=== PATIENT | female | born 1980 | race Caucasian/White ===

== ENCOUNTER → 2023-05-14 | Outpatient (CLI) | payer BC, SELFPAY ==
--- NOTE | 2023-05-14 | DI.MG.S_ITS ---
BILATERAL DIGITAL SCREENING MAMMOGRAM 3D/2D WITH CAD: 05/14/2023 CLINICAL: Baseline exam. Routine screening. No prior exams were available for comparison. Both breasts are heterogeneously dense, which may obscure small masses (category c / 51-75% glandular tissue). Current study was also evaluated with a Computer Aided Detection (CAD) system. No significant masses, calcifications, or other findings are seen in either breast. IMPRESSION: NEGATIVE There is no mammographic evidence of malignancy. A 1 year screening mammogram is recommended. Based on the Tyrer Cuzick model (a risk assessment model) the patient's lifetime risk is 15.1% and her 10 year risk is 1.9%. According to the ACR, ACS, and NCCN guidelines, an annual breast MRI exam along with mammogram is recommended if the patient's lifetime risk is 20% or greater. This exam was interpreted at Station ID: [id number]. NOTE: For mammograms, a report in lay terms will be sent to the patient. Approximately 15% of breast malignancies will not be visualized mammographically. In the management of a palpable breast mass, a negative mammogram must not discourage biopsy of a clinically suspicious lesion. Electronically Signed By: Olvin styles/isrrael:05/14/2023 18:23:12 letter sent: Normal Exam ACR BI-RADS Category 1: Negative [id number]
--- NOTE | 2023-05-16 11:29 | DI.NM.S_ITS ---
DATE OF SERVICE: 05/14/2023 PROCEDURE: Exercise treadmill stress test without imaging. ORDERING PROVIDER: BRIANNA Alvarez. INDICATIONS: The patient is a 42-year-old female with unspecified chest discomfort. FINDINGS: 1. The patient was able to exercise for 11 minutes and 1 second on a standard Jules protocol suggesting very good exercise capacity with an ISSAC of -23%, achieving 12.8 METS. 2. She had a normal heart rate and blood pressure response to exercise, achieving a maximum heart rate of 188 BPM (104% of her predicted maximum). 3. She had no chest discomfort or other anginal symptoms. 4. Her resting ECG showed sinus rhythm with normal ST segments. There are no significant ST-segment shifts with exercise. She had rare isolated PVCs at peak exercise and in early recovery, but no complex ventricular ectopy. IMPRESSION: 1. Normal exercise treadmill stress test for ischemia. 2. Very good exercise capacity without angina. She had rare isolated PVCs at peak exercise and in early recovery but without complex ectopy. Mary Miranda - AARON/zaid/JARROD doc#: [id number]/job#: [id number] dd: 05/14/2023 16:42:00 dt: 05/15/2023 00:22:00 DICTATING MD/COPIES TO: Douglas Dumas MD; BRIANNA Alvarez COPIES MNE: GEO
== END ==
LOC: MAMMO 07:20
PROVIDERS: PCP Registered Nurse; Referring Provider Registered Nurse; Visit Provider Registered Nurse
DX: R07.9 Chest pain, unspecified (principal); Z12.31 Encounter for screening mammogram for malignant neoplasm of breast
CPT/HCPCS: 77063; 77067; 93017

== ENCOUNTER → 2023-06-26 06:45 | Outpatient (CLI) | payer BC, SELFPAY ==
--- NOTE | 2023-06-26 | DI.US.S_ITS ---
PROCEDURE: US PELVIC COMPLETE INDICATIONS: FERTILITY WORK-UP TECHNIQUE: Real-time scanning was performed of the pelvic organs, with image documentation. Additional endovaginal scanning was necessary due to incomplete visualization of the adnexal and endometrial structures by transabdominal scanning. COMPARISON: None. FINDINGS: Uterus: Uterus is anteverted and normal in size at 8.9 x 4.5 x 5.7 cm. The myometrium is homogeneous. The endometrium measures 6.3 mm combined thickness. The endometrium has a trilaminar appearance. There is a right-sided intramural fibroid which measures 3.0 x 2.5 x 2.4 cm, a right anterior intramural fibroid which measures 2.1 x 1.7 x 1.7 cm and a midline central intramural fibroid which measures 3.4 x 3.0 x 2.9 cm. Some calcifications are noted within the fibroids. Ovaries: The right ovary measures 2.1 x 3.1 x 2.1 cm, with a calculated ovarian volume of 7.4 cc. The left ovary measures 3.0 x 1.8 x 2.1 cm, with a calculated ovarian volume of 7.6 cc. The ovaries have a normal sonographic appearance. There are 13 follicles within the right ovary and 11 follicles within the left ovary. The dominant left ovarian follicle measures 1.3 x 0.9 x 1.0 cm. No adnexal masses are seen. Other: No pathologic free abdominal or pelvic fluid. IMPRESSION: 1. 13 right and 11 left ovarian follicles. 2. Fibroid uterus. We strive to produce accurate, complete, and clear reports of imaging services. To assist us in improving patient care, this report was composed using standard report templates and voice recognition software. Therefore, it may contain abnormal punctuation, insertions and/or omissions. Occasional wrong-word or sound-alike substitutions may occur. Though we review the report and make efforts to correct it, we do recommend that the report be read carefully in proper context to recognize any text inaccuracies. Dictated by: Barbara Clemons M.D. on 06/26/2023 at 9:11 Approved by: Barbara Clemons M.D. on 06/26/2023 at 9:14
== END ==
PROVIDERS: PCP Registered Nurse; Referring Provider Physician Assistant; Visit Provider Physician Assistant
DX: Z31.41 Encounter for fertility testing (principal)
CPT/HCPCS: 76830; 76856

== ENCOUNTER → 2024-06-18 | Outpatient (CLI) | payer BC, SELFPAY | PROVIDERS: Referring Provider Internal Medicine; Visit Provider Internal Medicine | DX: Z23 Encounter for immunization (principal) | CPT/HCPCS: 90471; 90656 ==

== ENCOUNTER → 2024-09-29 12:12 | Outpatient (CLI) | payer BC, SELFPAY ==
--- NOTE | 2024-09-29 12:13 | DI.US.S_ITS ---
PROCEDURE: US FOLLICLE TRANSVAGINAL INDICATIONS: eval ovulation,measure cysts/follicles in 3D TECHNIQUE: Real-time scanning was performed of the pelvic organs, with image documentation. Additional endovaginal scanning was necessary due to incomplete visualization of the adnexal and endometrial structures by transabdominal scanning. COMPARISON: [facility], , US PELVIC COMPLETE, 06/26/2023, 6:53. FINDINGS: Uterus: Uterus is anteverted and normal in size at 8.8 x 6.4 x 4.9 cm. The myometrium is homogeneous. 3.3 x 2.8 x 2.6 cm intramural fibroid is seen in right myometrium, previously measures 3 x 2.5 x 2.4 cm. 2.2 x 1.8 x 1.7 cm intramural fibroid is seen in right myometrium, previously measures 2.1 x 1.7 x 1.7 cm in size. 3.4 x 3.5 x 3.5 cm intramural fibroid is seen in left myometrium, previously measures 3.4 x 3 x 2.9 cm in size. 1 x 1.1 x 1.0 cm subserosal fibroid is seen in anterior myometrium new since previous study. The endometrium measures 5.4 mm combined thickness. No endometrial mass or fluid is seen. Ovaries: The right ovary measures 3.6 x 3.1 x 2.2 cm, with a calculated ovarian volume of 12.8 cc. The left ovary measures 3.6 x 2.5 x 2.1 cm, with a calculated ovarian volume of 9.9 cc. Less than 12 follicles can be seen in right ovary. Greater than 12 follicles are noted in left ovary. Most are less than 1 cm in size. No adnexal masses are seen. 1.5 x 1.4 x 1.1 cm thick walled follicle is seen in right ovary. 1 x 0.9 x 0.9 cm thick walled follicle is also seen in right ovary. 1.1 x 1.1 x 0.8 cm follicle is seen in left ovary. 1.1 x 0.9 x 0.8 cm follicle is also seen in left ovary. Other: No pathologic free abdominal or pelvic fluid. IMPRESSION: 1. Less than 12 follicles are noted in right ovary. Greater than 12 follicles are seen in left ovary. There are 2 greater than 1 cm follicles seen in each ovaries as described above. Findings meet the [place] definition of polycystic ovaries. In the absence of ovulatory dysfunction or clinically/biochemically diagnosed hyperandrogenism, findings are non specific and do not indicate the presence of polycystic ovarian syndrome. 2. Enlarged fibrous uterus as described in detail above. No endometrial mass or fluid. We strive to produce accurate, complete, and clear reports of imaging services. To assist us in improving patient care, this report was composed using standard report templates and voice recognition software. Therefore, it may contain abnormal punctuation, insertions and/or omissions. Occasional wrong-word or sound-alike substitutions may occur. Though we review the report and make efforts to correct it, we do recommend that the report be read carefully in proper context to recognize any text inaccuracies. Dictated by: Yamil Carrero M.D. on 09/29/2024 at 13:22 Approved by: Yamil Carrero M.D. on 09/29/2024 at 13:34
== END ==
PROVIDERS: Visit Provider Obstetrics & Gynecology
DX: N93.9 Abnormal uterine and vaginal bleeding, unspecified (principal); N94.4 Primary dysmenorrhea; D25.1 Intramural leiomyoma of uterus; D25.2 Subserosal leiomyoma of uterus
CPT/HCPCS: 76830

== ENCOUNTER → 2024-10-07 13:00 | Outpatient (ROUT) | payer BC, SELFPAY ==
[2024-10-07 14:18] LABS: Influenza A - CEPHEID Flu A POSITIVE (NEGATIVE); Influenza B - CEPHEID Flu B NEGATIVE (NEGATIVE); Respiratory Syncytial Virus Negative (Negative)
[2024-10-07 14:19] LABS: COVID-19 CEPHEID 4-PLEX PCR Negative (Negative)
== END ==
PROVIDERS: Visit Provider Family Medicine
DX: R05.1 Acute cough (principal); R50.9 Fever, unspecified
CPT/HCPCS: 0241U

== ENCOUNTER → 2024-10-15 15:16 | Outpatient (ROUT) | payer BC, SELFPAY ==
[2024-10-15 16:03] LABS: HCG Quantitative /Beta subunit 30.92 mIU/mL
== END ==
PROVIDERS: Visit Provider Obstetrics & Gynecology
DX: Z32.00 Encounter for pregnancy test, result unknown (principal)
CPT/HCPCS: 84702

== ENCOUNTER → 2024-10-17 12:14 | Outpatient (ROUT) | payer BC, SELFPAY ==
[2024-10-17 13:01] LABS: HCG Quantitative /Beta subunit 23.81 mIU/mL
== END ==
PROVIDERS: Visit Provider Obstetrics & Gynecology
DX: Z32.00 Encounter for pregnancy test, result unknown (principal)
CPT/HCPCS: 84702

== ENCOUNTER → 2024-11-21 07:52 | Outpatient (ROUT) | payer BC, SELFPAY ==
[2024-11-21 08:21] LABS: HCG Quantitative /Beta subunit 7.94 mIU/mL
== END ==
LOC: LAB 07:52
PROVIDERS: Visit Provider Obstetrics & Gynecology
DX: Z32.00 Encounter for pregnancy test, result unknown (principal)
CPT/HCPCS: 84702

== ENCOUNTER → 2024-12-05 13:10 | Outpatient (CLI) | payer BC, SELFPAY ==
[2024-12-05 16:35] LABS: Urine N gonorrhoeae NOT DETECTED
[2024-12-05 17:13] LABS: Urine Chlamydia NOT DETECTED
[2024-12-06 14:09] LABS: Strep Grp B PCR NEG for Grp B Strep
[2024-12-06 14:39] LABS: Candida species Negative (Negative); Gardnerella vaginalis Negative (Negative); Trichomoas vaginalis Negative (Negative)
[2024-12-08 20:08] LABS: Mycoplasma genitalium, NAA Negative (Negative); Mycoplasma hominis NAA Negative (Negative); Ureaplasma spp NAA Negative (Negative)
== END ==
PROVIDERS: PCP Registered Nurse; Visit Provider Obstetrics & Gynecology
DX: Z11.3 Encounter for screening for infections with a predominantly sexual mode of transmission (principal); Z31.69 Encounter for other general counseling and advice on procreation
CPT/HCPCS: 87070; 87205; 87480; 87491; 87510; 87563; 87591; 87653; 87660; 87798

== ENCOUNTER → 2025-04-20 06:43 | Outpatient (CLI) | payer BC, SELFPAY ==
--- NOTE | 2025-04-20 06:44 | DI.US.S_ITS ---
PROCEDURE: US FOLLICLE TRANSVAGINAL INDICATIONS: ovulation TECHNIQUE: Real-time scanning was performed of the pelvic organs, with image documentation. Additional endovaginal scanning was necessary due to incomplete visualization of the adnexal and endometrial structures by transabdominal scanning. COMPARISON: [facility], , US FOLLICLE TRANSVAGINAL, 09/29/2024, 12:30. FINDINGS: Uterus: Uterus is anteverted and normal in size at 9.6 x 5.0 x 6.6 cm. The myometrium is heterogeneous due to several fibroids ranging in size from 1.8-3.9 cm. The endometrium is trilaminar and 5.6 mm combined thickness. Small complex nabothian cysts in the cervix. Ovaries: The right ovary measures 3.5 x 1.6 x 2.4 cm, with a calculated ovarian volume of 7.0 cc. The left ovary measures 3.4 x 2.0 x 3.0 cm, with a calculated ovarian volume of 10.8 cc. The left ovary contains two follicles greater than 1 cm and several other subcentimeter follicles. The right ovary contains several follicles, all less than 1.0 cm. No adnexal masses are seen. Other: No pathologic free abdominal or pelvic fluid. IMPRESSION: Two left ovarian dominant follicles greater than 1 cm. Multiple other bilateral subcentimeter ovarian follicles. Stable fibroid uterus. We strive to produce accurate, complete, and clear reports of imaging services. To assist us in improving patient care, this report was composed using standard report templates and voice recognition software. Therefore, it may contain abnormal punctuation, insertions and/or omissions. Occasional wrong-word or sound-alike substitutions may occur. Though we review the report and make efforts to correct it, we do recommend that the report be read carefully in proper context to recognize any text inaccuracies. Dictated by: Sydni Paulino M.D. on 04/21/2025 at 8:11 Approved by: Sydni Paulino M.D. on 04/21/2025 at 8:15
== END ==
LOC: US 06:43
PROVIDERS: PCP Registered Nurse; Referring Provider Student in an Organized Health Care Education/Training Program; Visit Provider Student in an Organized Health Care Education/Training Program
DX: N92.0 Excessive and frequent menstruation with regular cycle (principal); N94.4 Primary dysmenorrhea; D25.9 Leiomyoma of uterus, unspecified
CPT/HCPCS: 76830

== ENCOUNTER → 2025-04-22 07:29 | Outpatient (CLI) | payer BC, SELFPAY ==
--- NOTE | 2025-04-22 07:30 | DI.US.S_ITS ---
PROCEDURE: US FOLLICLE TRANSVAGINAL INDICATIONS: FERTILITY TECHNIQUE: Real-time scanning was performed of the pelvic organs, with image documentation. Additional endovaginal scanning was necessary due to incomplete visualization of the adnexal and endometrial structures by transabdominal scanning. COMPARISON: [facility], [place], US FOLLICLE TRANSVAGINAL, 04/20/2025, 6:50. FINDINGS: Uterus: Uterus is anteverted and prominent size at 10.3 x 5.3 x 6.1 cm. The myometrium is homogeneous. The endometrium measures 10.6 mm combined thickness. Ovaries: The right ovary measures 2.3 x 2.9 x 2.1 cm, with a calculated ovarian volume of 7.6 cc. The left ovary measures 3.1 x 3.3 x 2.2 cm, with a calculated ovarian volume of 11.8 cc. The right ovary demonstrates no follicles greater than 1 cm. Several follicles less than 1 cm are present. Within the left ovary 2 follicles are greater than 1 cm measuring 2.3 x 1.5 x 1.9 cm and 1.2 x 0.7 x 1.0 cm. Several follicles are less than 1 cm. Other: No pathologic free abdominal or pelvic fluid. IMPRESSION: Follicle evaluation as above. We strive to produce accurate, complete, and clear reports of imaging services. To assist us in improving patient care, this report was composed using standard report templates and voice recognition software. Therefore, it may contain abnormal punctuation, insertions and/or omissions. Occasional wrong-word or sound-alike substitutions may occur. Though we review the report and make efforts to correct it, we do recommend that the report be read carefully in proper context to recognize any text inaccuracies. Dictated by: Meri Chavarria M.D. on 04/22/2025 at 10:17 Approved by: Meri Chavarria M.D. on 04/22/2025 at 10:48
== END ==
LOC: US 07:30
PROVIDERS: PCP Registered Nurse; Referring Provider Student in an Organized Health Care Education/Training Program; Visit Provider Student in an Organized Health Care Education/Training Program
DX: N92.0 Excessive and frequent menstruation with regular cycle (principal); N94.4 Primary dysmenorrhea
CPT/HCPCS: 76830

== ENCOUNTER → 2025-04-24 06:47 | Outpatient (CLI) | payer BC, SELFPAY ==
--- NOTE | 2025-04-24 06:48 | DI.US.S_ITS ---
PROCEDURE: US FOLLICLE TRANSVAGINAL INDICATIONS: ovulation TECHNIQUE: Real-time scanning was performed of the pelvic organs, with image documentation. Additional endovaginal scanning was necessary due to incomplete visualization of the adnexal and endometrial structures by transabdominal scanning. COMPARISON: [facility], , US FOLLICLE TRANSVAGINAL, 04/22/2025, 7:38. FINDINGS: Uterus: Uterus is anteverted and normal in size at 8.5 x 5.5 x 5.9 cm. The myometrium is homogeneous. The endometrium measures 8 mm combined thickness. Ovaries: The right ovary measures 2.7 x 2.1 x 2.7 cm, with a calculated ovarian volume 8.0 cc. The left ovary measures 2.9 x 3.3 x 2.0 cm, with a calculated ovarian volume of 10.2 cc. Several sub cm right follicular cysts are present and no right follicles greater than 1 cm. There are 2 follicles greater than 1 cm in the left ovary, the larger measuring 1.2 cm and the smaller 1.0 cm. Several subcentimeter follicles. Other: No pathologic free abdominal or pelvic fluid. IMPRESSION: 1. Unremarkable sonographic appearance of the uterus with endometrial complex measuring 8 mm. 2. Follicular evaluation as described above. We strive to produce accurate, complete, and clear reports of imaging services. To assist us in improving patient care, this report was composed using standard report templates and voice recognition software. Therefore, it may contain abnormal punctuation, insertions and/or omissions. Occasional wrong-word or sound-alike substitutions may occur. Though we review the report and make efforts to correct it, we do recommend that the report be read carefully in proper context to recognize any text inaccuracies. Dictated by: Reilly EDDY Interpreted: Douglas Downing MD on 04/24/2025 at 10:37 Transcribed by: SCOT on 04/24/2025 at 10:43 Approved by: Douglas Downing M.D. on 04/24/2025 at 16:05
== END ==
LOC: US 06:48
PROVIDERS: PCP Registered Nurse
DX: N92.0 Excessive and frequent menstruation with regular cycle (principal); N94.4 Primary dysmenorrhea; N83.02 Follicular cyst of left ovary
CPT/HCPCS: 76830